=== PATIENT | female | born 1965 | race Caucasian/White ===

== ENCOUNTER 2019-05-20 21:21 | Emergency (ER) | payer OTHER ==
[~2019-05-20] VITALS: Ht 157.5 cm; Wt 85.7 kg
[2019-05-20 22:10] VITALS: BP 139/89; Ht 157.5 cm; Wt 85.7 kg
== END 2019-05-21 00:01 | disposition left against medical advice (07) ==
LOC: ED 21:21
DX: Z53.21 Procedure and treatment not carried out due to patient leaving prior to being seen by health care provider (principal)

== ENCOUNTER 2019-05-21 06:59 | Emergency (ER) | payer OTHER ==
[~2019-05-21] VITALS: Ht 157.5 cm; Wt 84.4 kg
[2019-05-21 07:29] VITALS: Ht 157.5 cm; Wt 84.4 kg
[2019-05-21 09:13] VITALS: BP 120/89
== END 2019-05-21 09:13 | disposition home or self-care (01) ==
LOC: ED 06:59
DX: N39.0 Urinary tract infection, site not specified (principal)

== ENCOUNTER 2020-03-24 10:14 | Emergency (ER) | payer OTHER ==
[~2020-03-24] VITALS: Ht 160 cm; Wt 83.5 kg
[2020-03-24 10:26] VITALS: Ht 160 cm; Wt 83.5 kg
[2020-03-24 11:14] VITALS: BP 159/92
== END 2020-03-24 11:12 | disposition home or self-care (01) ==
LOC: ED 10:14
DX: N30.00 Acute cystitis without hematuria (principal)